=== PATIENT | female | born 1945 | race Caucasian/White ===

== ENCOUNTER → 2016-12-28 | Outpatient (REF) | LOC: COL.CARD 14:04 | DX: R00.8 Other abnormalities of heart beat (principal) ==

== ENCOUNTER → 2017-06-22 | Outpatient (REF) ==
[2017-06-22 18:51] LABS: THYROID STIMULATING HORMONE 0.308 uIU/mL (0.465-4.680)
== END ==
LOC: ZLAB.WCH 18:09
PROVIDERS: Family Medicine
DX: Z01.89 Encounter for other specified special examinations (principal)

== ENCOUNTER → 2018-04-06 | Outpatient (REF) ==
[2018-04-06 17:17] LABS: THYROID STIMULATING HORMONE 0.234 uIU/mL (0.465-4.680)
== END ==
LOC: ZLAB.WCH 15:52
PROVIDERS: Family Medicine
DX: Z01.89 Encounter for other specified special examinations (principal)

== ENCOUNTER → 2018-11-02 | Outpatient (REF) ==
[2018-11-02 17:11] LABS: THYROID STIMULATING HORMONE 0.318 uIU/mL (0.465-4.680)
== END ==
LOC: ZLAB.WCH 16:15
PROVIDERS: Family Medicine
DX: Z01.89 Encounter for other specified special examinations (principal)

== ENCOUNTER → 2019-02-06 | Outpatient (REF) | LOC: COL.CARD 13:36 | DX: Z01.818 Encounter for other preprocedural examination (principal) ==